=== PATIENT | female | born 1985 | race Caucasian/White ===

== ENCOUNTER 2018-12-10 06:00 | Inpatient (IN) | payer OTHER ==
[2018-12-10] MEDS ORDERED: Bupivacaine/Epinephrine 0.25% 30 ML VIAL ONE (10:00)
[2018-12-10] MEDS ORDERED: Butorphanol Tartrate 1 MG/ML VIAL SLOW IVP PRN (12:32)
[2018-12-10] MEDS ORDERED: Carboprost 250 MCG/ML AMP IM PRN (12:32)
[2018-12-10] MEDS ORDERED: NS w/ Oxytocin 10 units 500 ML IV SCH (12:32)
[2018-12-10] MEDS ORDERED: Meperidine HCl/PF 25 MG/ML VIAL IM/IV PRN (12:32)
[2018-12-10] MEDS ORDERED: Acetaminophen 500 MG TAB PO PRN (12:32)
[2018-12-10] MEDS ORDERED: Promethazine HCl 25 MG/ML VIAL IM PRN (12:32)
[2018-12-10] MEDS ORDERED: Ibuprofen 800 MG TAB PO PRN (12:32)
[2018-12-10] MEDS ORDERED: HYDROcodone/Acetaminophen 5/325 mg Tablet PO PRN ×2 (12:32→21:16)
[2018-12-10] MEDS ORDERED: Methylergonovine 0.2 MG/ML VIAL IM PRN (12:32)
[2018-12-10] MEDS ORDERED: Misoprostol 200 MCG TAB PR PRN (12:32)
[2018-12-10] MEDS ORDERED: Lidocaine 1% (PF) 30 ML VIAL SC PRN (12:32)
[2018-12-10] MEDS ORDERED: Ondansetron PF 4 MG/2 ML Vial IVP PRN (12:32)
[2018-12-10 12:36] VITALS: BMI 24.2
[2018-12-10] MEDS: Lactated Ringer's 1,000 ML IV SCH (13:05)
[2018-12-10 13:33] LABS: Hemoglobin 12.5 g/dL (12.0-16.0); Mean Corpuscular HGB CONC 32.2 g/dL (32.0-36.0); Mean Corpuscular Hemoglobin 31.1 pg (27.0-31.0); Mean Corpuscular Volume 96.7 fL (78.0-98.0); Mean Platelet Volume 9.9 fL (7.4-10.4); Platelet Count 133 thou/uL (130-400); RBC Distribution Width 12.7 % (11.5-14.5); Red Blood Cell (RBC) Count 4.02 mill/uL (4.20-5.40)
[2018-12-10 14:02] LABS: Syphilis Antibody Nonreactive (Nonreactive); Syphilis Antibody Index 0.04 S/CO (<1.00 Non-Reactive)
[2018-12-10 14:03] LABS: HBSAg Index 0.22 S/CO (0-0.99); Hep B Surf Ag Non-Reactive S/CO (NonReactive)
[2018-12-10] MEDS ORDERED: Fentanyl 4 mcg/Bup 0.1% Cadd 100 ML ONE (16:00)
[2018-12-10] MEDS ORDERED: Naloxone HCl 0.4 mg/ml Vial IVP PRN ×2 (16:50)
[2018-12-10] MEDS ORDERED: diphenhydrAMINE 50 MG/ML VIAL IVP PRN (16:50)
[2018-12-10] MEDS ORDERED: ePHEDrine/0.9% NaCl/PF SYRINGE 50 mg/10 ml SLOW IVP PRN (16:50)
[2018-12-10] MEDS ORDERED: Acetaminophen 325 MG TAB PO PRN (16:50)
[2018-12-10] MEDS ORDERED: Eucerin (Mineral Oil/Petrolatum,White) 30 gm Jar TOP PRN (16:50)
[2018-12-10] MEDS ORDERED: Lactated Ringer's 500 ML IV PRN (16:50)
[2018-12-10] MEDS ORDERED: Communication Order-Pharmacy FS SCH (17:00)
[2018-12-10] MEDS ORDERED: Fentanyl 4 mcg/Bupivacaine 0.1% Cassette 100 ML EPIDURAL SCH (17:00)
[2018-12-10] MEDS: NS / Oxytocin 40 units/1000ml 1,000 ML IV PRN ×2 (18:35→21:15)
[2018-12-10] MEDS ORDERED: Lanolin Ointment 7 GM TUBE TOP PRN (21:16)
[2018-12-10] MEDS ORDERED: Bisacodyl 10 MG SUPP PR PRN (21:16)
[2018-12-10] MEDS ORDERED: diphenhydrAMINE 25 MG CAP PO PRN (21:16)
[2018-12-10] MEDS ORDERED: Benzocaine/Menthol 20-0.5% 60 ML CAN TOP PRN (21:16)
[2018-12-10] MEDS ORDERED: Milk Of Magnesia 30 ML UDCUP PO PRN (21:16)
[2018-12-10] MEDS ORDERED: NS / Oxytocin 40 units/1000ml 1,000 ML IV SCH (21:16)
[2018-12-10] MEDS ORDERED: Docusate Calcium (SURFAK) 240 MG CAP PO SCH (21:30)
[2018-12-11] MEDS: Ibuprofen 800 MG TAB PO SCH ×4 (00:13→22:25)
--- NOTE | 2018-12-11 00:54 | OP ---
DATE OF PROCEDURE: 12/10/2018 PREOPERATIVE DIAGNOSES: Term intrauterine and induction of labor at term. POSTOPERATIVE DIAGNOSES: Term intrauterine and induction of labor at term as well as a second-degree perineal laceration. PROCEDURE PERFORMED: Normal spontaneous vaginal delivery and laceration repair. ANESTHESIA: Epidural. BLOOD LOSS: Please see the nurse's notes for quantitative blood loss. BRIEF DELIVERY SUMMARY: This is a 33-year-old G2, now P2, who presented for induction of labor at 40 weeks and 2 days. She received Pitocin and underwent artificial rupture of membranes, after which time, she progressed very well. She received epidural anesthesia and progressed to complete and pushing rather quickly. She delivered a live female head away. Mouth and nares were bulb suctioned at the perineum. There was no nuchal cord. Shoulders and body easily followed. The was placed on mother's abdomen. Infant Apgars were 9 at one minute and 9 at five minutes. The umbilical cord was doubly clamped and cut and cord blood was sent for analysis. Placenta delivered spontaneously and intact with a 3-vessel umbilical cord. The uterine fundus was boggy following evacuation of placenta, but firmed up with bimanual massage and Pitocin was running in the IV. There was a second-degree perineal laceration that was repaired in standard running fashion with 2-0 Vicryl suture under epidural anesthesia. Of note, there was an arterial bleeder that was first sutured with a [id number] with good hemostasis prior to closure of the remainder of the laceration. Mom and baby were left with the nurse in excellent condition, attempting at breastfeed. Job ID: [id number]
[2018-12-11] MEDS: Lactated Ringer's 1,000 ML IV SCH (02:10)
[2018-12-11 07:37] LABS: Hemoglobin 11.1 g/dL (12.0-16.0); Mean Corpuscular HGB CONC 33.9 g/dL (32.0-36.0); Mean Corpuscular Hemoglobin 32.8 pg (27.0-31.0); Mean Corpuscular Volume 96.9 fL (78.0-98.0); Mean Platelet Volume 9.7 fL (7.4-10.4); Platelet Count 119 thou/uL (130-400); RBC Distribution Width 12.7 % (11.5-14.5); Red Blood Cell (RBC) Count 3.37 mill/uL (4.20-5.40); White Blood Cell (WBC) Count 10.7 thou/uL (4.8-10.8)
[2018-12-11] MEDS: Ferrous Sulfate 325 MG TAB PO SCH ×2 (08:16→13:47)
[2018-12-11] MEDS: Docusate Calcium (SURFAK) 240 MG CAP PO SCH ×2 (08:17→22:25)
[2018-12-11] MEDS: Prenatal Vitamin 1 TAB PO SCH (08:17)
[2018-12-11] MEDS ORDERED: Adacel (T-DAP) 0.5 ML SYRINGE IM ONE (09:00)
--- NOTE | 2018-12-11 13:44 | PDOC.PP ---
Post Progress Note Post Day #: 1 Subjective: Doing well, no complaints, some cramping but ok, lochia normal, well PO intake tolerated: yes Flatus: yes Ambulation: yes Vital Signs (12 hours) Temp Pulse Resp BP Pulse Ox 12/11/18 11:53 98.3 F 77 20 124/70 12/11/18 08:17 98.1 F 70 20 127/78 100 12/11/18 05:45 91 18 127/66 Weight Weight 150 lb - Physical Examination General: NAD Cardiovascular: no m/r/g, RRR Respiratory: clear to auscultation bilaterally, non-labored breathing Abdominal: + bowel sounds, lochia, no distention, appropriately TTP Result Diagrams: 12/11/18 07:05 Additional Labs: Post Labs Blood Type O POSITIVE 12/10/18 12:51 Hep Bs Antigen Non-Reactive S/CO (NonReactive) 12/10/18 12:51 (1) Vaginal delivery Code(s): O80 - ENCOUNTER FOR FULL-TERM UNCOMPLICATED DELIVERY Status: Acute - Assessment/Plan Routine PP care D/C tomorrow AM
[2018-12-12] MEDS: Ibuprofen 800 MG TAB PO SCH ×2 (06:17→09:12)
--- NOTE | 2018-12-12 08:05 | PDOC.PP ---
Post Progress Note Post Day #: 2 Subjective: Doing well, no complaints, lochia normal PO intake tolerated: yes Flatus: yes Ambulation: yes Vital Signs (12 hours) Temp Pulse Resp BP Pulse Ox 12/11/18 20:20 97.8 F 81 16 128/74 100 Weight Weight 150 lb - Physical Examination General: NAD Cardiovascular: no m/r/g, RRR Respiratory: clear to auscultation bilaterally, non-labored breathing Abdominal: + bowel sounds, lochia, no distention, appropriately TTP Result Diagrams: 12/11/18 07:05 Additional Labs: Post Labs Blood Type O POSITIVE 12/10/18 12:51 Hep Bs Antigen Non-Reactive S/CO (NonReactive) 12/10/18 12:51 (1) Vaginal delivery Code(s): O80 - ENCOUNTER FOR FULL-TERM UNCOMPLICATED DELIVERY Status: Acute - Assessment/Plan Routine care D/C home
[2018-12-12 08:16] VITALS: BP 120/67; TEMP 97.7
[2018-12-12] MEDS: Prenatal Vitamin 1 TAB PO SCH (09:11)
[2018-12-12] MEDS: Docusate Calcium (SURFAK) 240 MG CAP PO SCH (09:11)
[2018-12-12] MEDS: Ferrous Sulfate 325 MG TAB PO SCH (09:13)
== END 2018-12-12 10:55 | disposition home or self-care (01) | DRG 807 ==
LOC: L&D 12:05 → 3SW 22:49
PROVIDERS: ADMIT Family Medicine; ATTEND Family Medicine
PROC: 10E0XZZ Delivery of Products of Conception, External Approach (ICD-10-PCS; principal; 2018-12-10)
PROC: 0KQM0ZZ Repair Perineum Muscle, Open Approach (ICD-10-PCS; 2018-12-10)
PROC: 3E033VJ Introduction of Other Hormone into Peripheral Vein, Percutaneous Approach (ICD-10-PCS; 2018-12-10)
DX: O48.0 Post-term pregnancy (principal); Z37.0 Single live birth; O70.1 Second degree perineal laceration during delivery; Z3A.40 40 weeks gestation of pregnancy; Z88.6 Allergy status to analgesic agent; Z88.1 Allergy status to other antibiotic agents
CPT/HCPCS: 36415; 51702; 85027; 86780; 86850; 86900; 86901; 87340; J2001